=== PATIENT | female | born 1970 | race Caucasian/White ===

== ENCOUNTER 2019-04-23 22:06 | Inpatient (IN) | payer BC ==
[2019-04-23] MEDS ORDERED: ONDANSETRON 4 MG/2 ML VIAL IVP STA (22:54)
--- NOTE | 2019-04-24 00:16 | ED ---
SOB HPI - General Chief Complaint: Shortness of Breath Stated Complaint: Pneumonia Time Seen by Provider: 04/23/19 22:16 Source: patient, RN/MD, EMS, RN notes reviewed, old records reviewed Mode of arrival: EMS Limitations: no limitations - History of Present Illness Initial Comments: This is a 48-year-old female who was transferred from [facility] today where she presented with complaints of abdominal pain fever generalized weakness shortness of breath that apparently started about 3 weeks ago with abdominal pain and fatigue patient states she was not feeling well has had also had intermittent constipation since that time. A 1 week ago she started developing chest pain exertional dyspnea. She was found have on CAT scan multilobar pneum onia. She also had elevated sed rate. Patient also states she does have a history kidney stones a history of sepsis in the past believed to be secondary to the kidney stones. Patient was given Rocephin and Zithromax at [facility] and sent here for further evaluation. Patient also states that she did have shortness of breath that was improved after nebulizer treatment. She is a former smoker. MD Complaint: shortness of breath - Related Data Home Medications Medication Instructions Recorded Confirmed Pregabalin [Lyrica] 75 mg PO QID 01/01/16 04/23/19 metFORMIN HCL [metFORMIN HCL ER] 750 mg PO DAILY 01/01/16 04/23/19 DULoxetine HCL [Cymbalta] 30 mg PO HS 04/23/19 04/23/19 DULoxetine HCL [Cymbalta] 60 mg PO QAM 04/23/19 04/23/19 Allergies Allergy/AdvReac Type Severity Reaction Status Date / Time No Known Allergies Allergy Verified 04/23/19 22:29 Review of Systems ROS Statement: Those systems with pertinent positive or pertinent negative responses have been documented in the HPI. ROS Other: All systems not noted in ROS Statement are negative. Past Medical History Past Medical History: Fibromyalgia Additional Past Medical History / Comment(s): kidney stone History of Any Multi-Drug Resistant Organisms: None Reported Past Surgical History: Cholecystectomy Additional Past Surgical History / Comment(s): kidney stone Past Psychological History: Depression Smoking Status: Current every day smoker Past Alcohol Use History: None Reported Past Drug Use History: Marijuana General Exam - General Exam Comments Initial Comments: This is a well-developed well-nourished awake alert oriented 3 female Limitations: no limitations General appearance: alert, anxious Head exam: Present: atraumatic, normocephalic, normal inspection Eye exam: Present: normal appearance, PERRL, EOMI. Absent: scleral icterus, conjunctival injection, periorbital swelling ENT exam: Present: normal exam, mucous membranes moist Neck exam: Present: normal inspection. Absent: tenderness, meningismus, lymphadenopathy Respiratory exam: Present: decreased breath sounds. Absent: respiratory distress, wheezes, rales, rhonchi, stridor Cardiovascular Exam: Present: regular rate, normal rhythm, normal heart sounds. Absent: systolic murmur, diastolic murmur, rubs, gallop, clicks GI/Abdominal exam: Present: soft, normal bowel sounds. Absent: distended, tenderness, guarding, rebound, rigid Extremities exam: Present: normal inspection, full ROM, normal capillary refill. Absent: tenderness, pedal edema, joint swelling, calf tenderness Back exam: Present: normal inspection Neurological exam: Present: alert, oriented X3, CN II-XII intact Psychiatric exam: Present: normal affect, normal mood Skin exam: Present: warm, dry, intact, normal color. Absent: rash Course Vital Signs 04/23/19 22:09 Temperature 98.0 F Pulse Rate 77 Respiratory 18 Rate Blood Pressure 125/91 O2 Sat by Pulse 99 Oximetry Medical Decision Making - Medical Decision Making I did review the materials presented from [facility]. The patient will be admitted the case is discussed with Dr. Cortes Disposition Clinical Impression: Pneumonia, Bronchospasm, Exertional dyspnea Disposition: ADMITTED IP TO THIS HOSP Condition: Fair Referrals: Grecia García MD [Primary Care Provider] - 1-2 days
[2019-04-24] MEDS ORDERED: PNEUMONIA PROTOCOL UTILIZED 1 EACH MISC PO PRN (00:21)
[2019-04-24] MEDS: SODIUM CHLORIDE 0.9% 1,000 ML IV SCH ×2 (01:39→02:37)
[2019-04-24] MEDS ORDERED: predniSONE 20 MG TAB PO SCH ×2 (01:49→09:00)
[2019-04-24] MEDS ORDERED: KETOROLAC 30 MG/ML 1 ML VIAL IVP PRN (01:51)
[2019-04-24] MEDS ORDERED: predniSONE 20 MG TAB PO STA (01:53)
[2019-04-24] MEDS: PANTOPRAZOLE 40 MG TABLET PO SCH ×2 (02:36→09:35)
[2019-04-24] MEDS: ALPRAZolam 0.5 MG TAB PO PRN ×2 (02:36→10:01)
[2019-04-24 02:42] LABS: Glucose,Whole Blood 133 mg/dL (75-99)
[2019-04-24 02:52] VITALS: BMI 31.1
--- NOTE | 2019-04-24 03:03 | P.HPIM ---
History of Present Illness H&P Date: 04/24/19 Chief Complaint: Pleuritic chest pain upper abdominal pain 48-year-old female with history of fibromyalgia. Positive family history of autoimmune disease Patient presented to our hospital as a transfer from [facility]. She went to [facility] with a complaint of generalized fatigue and heavy breathing with pleuritic chest pain. She's been having three-week history of abdominal discomfort with nausea. She reports constipation with a bowel movement once every 3-5 days after taking laxatives. Denies any GI bleeding denies any urinary symptoms denies any vomiting. She reports vague symptoms of malaise and fatigue and low-grade fevers. She denies any coughing denies any runny nose or sore throat denies any chest pain however today she started having pleuritic chest pain with deep breaths for which she decided to go to the hospital At [facility] ER she was found to be hypoxic with oxygen sats down to the mid 80s. Her EKG was negative her troponins were negative however d-dimer was positive for which she had CT angiography the chest due to complaints of pleuritic chest pain to rule out PE. CT angios the chest showed no PE however did suggest bilateral lobar pneumonia showing groundglass opacities for which she was given Rocephin and azithromycin and then was transferred to our facility for further care. I reviewed paper records from [facility] including her PCP office records looks like patient had thrombocytosis with elevated platelets normal white count and normal hemoglobin and normal complete metabolic panel. However her platelets were elevated in the 600s range, ESR elevated to 100, antinuclear antibody was positive The differential showed positive anti-BRAKE REPAIRER RAILROAD, negative anti-Fink and negative double-stranded DNA. This is in my opinion suggestive of mixed connective tissue disease for which would explain the vague symptoms that she mentioned above including fatigue malaise fevers and pleuritic chest pain along with abdominal discomfort. I stopped the antibiotic and initiated the patient on prednisone we'll continue to monitor for clinical improvement Patient had a computed tomography scan done 2 weeks ago to the abdomen which only showed constipation this was done at [facility] Review of Systems Pertinent positives as noted in HPI. All other systems were reviewed and are negative Past Medical History Past Medical History: Fibromyalgia Additional Past Medical History / Comment(s): kidney stone History of Any Multi-Drug Resistant Organisms: None Reported Past Surgical History: Cholecystectomy Additional Past Surgical History / Comment(s): kidney stone Past Psychological History: Depression Smoking Status: Current every day smoker Past Alcohol Use History: None Reported Past Drug Use History: Marijuana - Past Family History Family Additional Family Medical History / Comment(s): Father with rheumatoid arthritis, sister with lupus Medications and Allergies Home Medications Medication Instructions Recorded Confirmed Type Pregabalin [Lyrica] 75 mg PO QID 01/01/16 04/23/19 History metFORMIN HCL [metFORMIN HCL ER] 750 mg PO DAILY 01/01/16 04/23/19 History DULoxetine HCL [Cymbalta] 30 mg PO HS 04/23/19 04/23/19 History DULoxetine HCL [Cymbalta] 60 mg PO QAM 04/23/19 04/23/19 History Allergies Allergy/AdvReac Type Severity Reaction Status Date / Time No Known Allergies Allergy Verified 04/23/19 22:29 Physical Exam Vitals: Vital Signs Temp Pulse Resp BP Pulse Ox 04/23/19 22:09 98.0 F 77 18 125/91 99 Intake and Output 04/23/19 04/23/19 04/24/19 14:59 22:59 06:59 Other: Weight 86.636 kg Constitutional: No acute distress, conversant, pleasant Eyes: Anicteric sclerae, moist conjunctiva, no lid-lag Pupils equal round reactive to light ENMT: NC/AT Oropharynx clear, no erythema, or exudates Neck: Supple, FROM, no masses, or JVD No carotid bruits No thyromegaly Lungs: Clear to auscultation Clear to percussion Normal respiratory effort, no accessory muscle use Cardiovascular: Heart regular in rate and rhythm, No murmurs, gallops, or rubs No peripheral edema Abdominal: Soft, tenderness to palpation over the left upper quadrant and right upper quadrant no rebound tenderness no guarding, rebound or rigidity Abdomen moving with respiration Normoactive bowel sounds No hepatomegaly, No splenomegaly No palpable mass No abdominal wall hernia noted Skin: Normal temperature, tone, texture, turgor No induration No subcutaneous nodules No rash, lesions No ulcers Extremities: No digital cyanosis No clubbing Pedal pulses intact and symmetrical Radial pulses intact and symmetrical No calf tenderness Psychiatric: Alert and oriented to person, place and time Appropriate affect fair judgment Neuro Muscles Strength 5/5 in all 4 extremities Sensation to light touch grossly present throughout Cranial nerves II-XII grossly intact No focal sensory deficits Lymphatics: no palpable cervical or supraclavicular , or inguinal lymph nodes Assessment and Plan Assessment: 48-year-old female with history of fibromyalgia and family history of autoimmune disease admitted as an inpatient with anticipated length of stay more than 2 midnights for acute hypoxic respiratory failure with underlying abdominal pain and pleuritic chest pain due to possible flareup of mixed connective tissue disease which is a new diagnosis for her. Patient was also admitted to rule out infectious process patient was transferred from [facility] to our facility for further care Patient received antibiotics in the ED Rocephin and azithromycin for presumed multilobar pneumonia. I reviewed patient labs from her PCP office it was positive for antinuclear antibody, positive for BRAKE [employer]PA[employer]ER [employer]ILROAD antibodies and negative for anti-Fink and [id number] DNA this is diagnostic of mixed connective tissue disease Patient complaining of pleuritic chest pain which I think part of the spectrum of mixed connective tissue disease flareup along with abdominal discomfort I reviewed paper records from [facility] including her PCP office records looks like patient had thrombocytosis with elevated platelets normal white count and normal hemoglobin and normal complete metabolic panel. However her platelets were elevated in the 600s range, ESR elevated to 100, antinuclear antibody was positive The differential showed positive anti-BRAKE REPAIRER RAILROAD, positive globulins, negative anti- Fink and negative double-stranded DNA. Negative sjogren antibodies This is in my opinion suggestive of mixed connective tissue disease for which would explain the vague symptoms that she mentioned above including fatigue malaise fevers and pleuritic chest pain along with abdominal discomfort. I stopped the antibiotic and initiated the patient on prednisone we'll continue to monitor for clinical improvement Urine analysis was unremarkable, amylase and lipase both negative CT of the abdomen done 1-2 weeks ago showed only constipation CT angiogram of the chest done at [facility] showed bilateral groundglass opacities, was concerning for bilateral lobar pneumonia Plan: Acute hypoxic respiratory failure (as per documentation from [facility] with a documented hypoxemia on room air down to 87%) Pleuritic chest pain, I think this is secondary to acute flareup of mixed connective tissue disease Knee diagnosis of mixed connective tissue disease Thrombocytosis most likely reactive Plan Patient received antibiotics in the ED Rocephin and azithromycin for presumed multilobar pneumonia. Discontinue antibiotic continue to monitor off antibiotics for any evidence of fever and leukocytosis or positive blood cultures. I reviewed patient labs from her PCP office it was positive for antinuclear antibody, positive for BRAKE REPA[employer]ER RAILROAD antibodies and negative for anti-Fink and yzrg-guvgmi-hhihwtin DNA this is diagnostic of mixed connective tissue disease Patient complaining of pleuritic chest pain which I think part of the spectrum of mixed connective tissue disease flareup along with abdominal discomfort Patient started on prednisone 60 mg daily we'll monitor for improvement in symptoms Patient will require referral to rheumatology upon discharge Check echocardiogram on the patient PPI for GI prophylaxis Heparin for DVT prophylaxis Supportive care IV fluid hydration Xanax for anxiety Pain control with Toradol Surrogate decision-maker: Patient and sister CODE STATUS: Full code Discussed with: Patient, ER, RN Anticipated length of stay more than [address]: Pending clinical course A total of 60 minutes was spent on the care of this complex patient more than 50% of the time was spent in counseling and care coordination.
--- NOTE | 2019-04-24 03:07 | P.HPADDEND ---
H&P Addendum H&P Addendum Date: 04/24/19 Advanced Care Planning Active diagnoses: Acute flareup of mixed connective tissue disease Pleurisy Acute hypoxic respiratory failure secondary to above Background: The patient was admitted for treatment of acute mixed connective tissue disease flareup. Confirmation and clarification of wishes upon admission. Discussion: Person(s) present and participating in discussion: The patient, myself, and RN Summary: I explained my opinion regarding new diagnosis of mixed connective tissue disease based on the blood work that she had at her PCP office from reviewing the anti-nuclear antibody assay. I explained to the patient disease progression which could manifest in different ways from meningitis to sudden bleeds to intracranial hemorrhage to pleurisy and pulmonary hypertension kidneys and skin issues. Suspect from that can involve symptoms related to lupus or rheumatoid arthritis among others. I explained to patient importance of establishing outpatient relationship and follow-up closely with rheumatology for further recommendations on management. I offered her in the acute setting glucocorticoid in the form of prednisone to help elevate the eighth her symptoms. Patient verbalized understanding she was tearful and worried as she was hoping for cure and feeling better at the same time she was happy that finally there is an explanation of her symptoms that she's been struggling with for years. Patient is hoping that she will be discharged home eventually as she has her sick that needs a lot of care. Patient is interested in home health care if she qualifies to. Patient elected to be a full code at this time and to pursue full medical measures as needed and deemed appropriate Time spent: Total time spent face to face in education and discussion directly related to advanced care plannin minutes
[2019-04-24] MEDS: IPRATROPIUM-ALBUTEROL 3 ML NEB INHALATION SCH ×2 (03:10→09:35)
[2019-04-24 06:11] VITALS: BP 135/84; RESP 16; TEMP 97.7
[2019-04-24 07:07] LABS: Glucose,Whole Blood 175 mg/dL (75-99)
[2019-04-24] MEDS ORDERED: INSULIN ASPART (NovoLOG) 100 UNIT/ML VIAL SQ SCH (07:30)
[2019-04-24] MEDS ORDERED: HEPARIN SODIUM,PORCINE 5,000 UNIT/ML 1 ML VIAL SQ SCH (08:00)
[2019-04-24] MEDS ORDERED: metFORMIN 500 MG TAB PO SCH (09:00)
[2019-04-24] MEDS ORDERED: PREGABALIN 75 MG CAP PO SCH (09:00)
[2019-04-24] MEDS ORDERED: DULoxetine HCL 60 MG CAPSULE.DR PO SCH (09:00)
--- NOTE | 2019-04-24 09:32 | ECHOF ---
Referral Reason:fatigue MEASUREMENTS -------- HEIGHT: 167.6 cm WEIGHT: 86.6 kg BP: 135/84 RVIDd: 3.1 cm (< 3.3) IVSd: 1.1 cm (0.6 - 1.1) LVIDd: 4.3 cm (3.9 - 5.3) LVPWd: 1.0 cm (0.6 - 1.1) IVSs: 1.7 cm LVIDs: 2.7 cm LVPWs: 1.6 cm LA Diam: 3.9 cm (2.7 - 3.8) LAESV Index (A-L): 27.67 ml/m Ao Diam: 2.9 cm (2.0 - 3.7) AV Cusp: 2.3 cm (1.5 - 2.6) MV EXCURSION: 12.148 mm (> 18.000) MV EF SLOPE: 94 mm/s (70 - 150) EPSS: 0.5 cm MV E Chemo: 0.96 m/s MV DecT: 220 ms MV A Chemo: 0.92 m/s MV E/A Ratio: 1.04 FINDINGS -------- Sinus rhythm. This was a technically good study. The left ventricular size is normal. There is borderline concentric left ventricular hypertrophy. Overall left ventricular systolic function is normal with, an EF between 60 - 65 %. The right ventricle is normal in size. Normal LA size by volume 22+/-6 ml/m2. The right atrium is normal in size. Interatrial and interventricular septum intact. The aortic valve is trileaflet and appears structurally normal. There is trace mitral regurgitation. The tricuspid valve appears structurally normal. There is no pulmonic regurgitation present. The aortic root size is normal. Normal inferior vena cava with normal inspiratory collapse consistent with estimated right atrial pre ssure of 5 mmHg. There is no pericardial effusion. CONCLUSIONS -------- 1. Sinus rhythm. 2. This was a technically good study. 3. The left ventricular size is normal. 4. There is borderline concentric left ventricular hypertrophy. 5. Overall left ventricular systolic function is normal with, an EF between 60 - 65 %. 6. The right ventricle is normal in size. 7. Normal LA size by volume 22+/-6 ml/m2. 8. The right atrium is normal in size. 9. Interatrial and interventricular septum intact. 10. The aortic valve is trileaflet and appears structurally normal. 11. There is trace mitral regurgitation. 12. The tricuspid valve appears structurally normal. 13. There is no pulmonic regurgitation present. 14. The aortic root size is normal. 15. Normal inferior vena cava with normal inspiratory collapse consistent with estimated right atrial pressure of 5 mmHg. 16. There is no pericardial effusion. [employer]ER MUS[employer]: Chari Hernández RDCS
[2019-04-24 09:39] VITALS: PULSE 68
--- NOTE | 2019-04-24 11:13 | P.DS ---
Providers Date of admission: 04/24/19 00:21 Expected date of discharge: 04/24/19 Attending physician: Mahesh Salas MD Primary care physician: Grecia García MD Hospital Course: Acute hypoxic respiratory failure (as per documentation from [facility] with a documented hypoxemia on room air down to 87%) Pleuritic chest pain, I think this is secondary to acute flareup of mixed connective tissue disease New diagnosis of mixed connective tissue disease Thrombocytosis most likely reactive Plan I reviewed patient labs from her PCP office it was positive for antinuclear antibody, positive for [employer] D[employer]LLING MACHINE OPERATOR antibodies and negative for anti-Fink and [id number] DNA this is diagnostic of mixed connective tissue disease Patient complaining of pleuritic chest pain which I think part of the spectrum of mixed connective tissue disease flareup along with abdominal discomfort Patient started on prednisone 60 mg daily we'll monitor for improvement in symptoms Patient was referred contact information to follow-up with rheumatology Dr. Melina Vallejo Patient received antibiotics in the ED Rocephin and azithromycin for presumed multilobar pneumonia. The patient is continued on azithromycin and instructed to follow-up with her PCP. This discharge process took approximately 30 minutes Focused exam Respiratory: Clear to auscultation bilaterally diminished in the bases, no wheezes or rhonchi unlabored on room air with excellent oxygen saturations Patient Condition at Discharge: Good Plan - Discharge Summary Discharge Rx Participant: No New Discharge Prescriptions: New Azithromycin 250 mg PO DAILY 4 Days #4 tab predniSONE 60 mg PO DAILY #14 tab Pantoprazole [Protonix] 40 mg PO DAILY #30 tablet. Continue metFORMIN HCL [metFORMIN HCL ER] 750 mg PO DAILY Pregabalin [Lyrica] 75 mg PO QID DULoxetine HCL [Cymbalta] 30 mg PO HS DULoxetine HCL [Cymbalta] 60 mg PO QAM Discharge Medication List Pregabalin [Lyrica] 75 mg PO QID 01/01/16 [History] metFORMIN HCL [metFORMIN HCL ER] 750 mg PO DAILY 01/01/16 [History] DULoxetine HCL [Cymbalta] 30 mg PO HS 04/23/19 [History] DULoxetine HCL [Cymbalta] 60 mg PO QAM 04/23/19 [History] Azithromycin 250 mg PO DAILY 4 Days #4 tab 04/24/19 [Rx] Pantoprazole [Protonix] 40 mg PO DAILY #30 tablet. 04/24/19 [Rx] predniSONE 60 mg PO DAILY #14 tab 04/24/19 [Rx] Follow up Appointment(s)/Referral(s): Melina Vallejo MD [REFERRING] - As Needed ([facility]. Please call office Saturday, 04/28, to schedule appt.) Grecia García MD [Primary Care Provider] - 1-2 days Patient Instructions/Handouts: Prednisone (By mouth), Azithromycin (By mouth), Pantoprazole (By mouth), Dyspnea (DC), Bronchospasm (DC), Pneumonia (DC) Discharge Disposition: HOME SELF-CARE
[2019-04-24] MEDS ORDERED: DULoxetine HCL 30 MG CAPSULE.DR PO SCH (21:00)
[2019-04-25] MEDS ORDERED: AZITHROMYCIN 500 MG TAB PO SCH (00:23)
== END 2019-04-24 11:45 | disposition home or self-care (01) | DRG 545 ==
LOC: EC 22:06 → 3NMEDONC 04-24 00:21
PROVIDERS: ADMIT Internal Medicine; ATTEND Internal Medicine
DX: M35.1 Other overlap syndromes (principal); J96.01 Acute respiratory failure with hypoxia; M79.7 Fibromyalgia; F17.200 Nicotine dependence, unspecified, uncomplicated; F41.9 Anxiety disorder, unspecified; D47.3 Essential (hemorrhagic) thrombocythemia; K59.00 Constipation, unspecified; F32.9 Major depressive disorder, single episode, unspecified; F17.210 Nicotine dependence, cigarettes, uncomplicated; Z90.49 Acquired absence of other specified parts of digestive tract; Z79.84 Long term (current) use of oral hypoglycemic drugs; Z79.899 Other long term (current) drug therapy; Z87.442 Personal history of urinary calculi; Z83.49 Family history of other endocrine, nutritional and metabolic diseases; Z82.61 Family history of arthritis; Z83.1 Family history of other infectious and parasitic diseases
CPT/HCPCS: 87040; 93306; 94640; 96374; 99285

== ENCOUNTER → 2021-06-22 | Outpatient (CLI) | payer BC ==
[2021-06-22 23:06] LABS: Basophils # (A) 0.05 X 10*3/uL (0.00-0.10); Basophils % (A) 0.8 %; Eosinophils # (A) 0.09 X 10*3/uL (0.04-0.35); Eosinophils % (A) 1.4 %; HCT 44.5 % (37.2-46.3); HGB 14.1 g/dL (12.0-15.0); Lymphocytes # (A) 1.72 X 10*3/uL (0.90-5.00); Lymphocytes % (A) 27.3 %; MCH 29.8 pg (27.0-32.0); MCHC 31.7 g/dL (32.0-37.0); MCV 94.1 fL (80.0-97.0); Mean Platelet Volume 11.6 fL (9.5-12.2); Monocytes % (A) 6.3 %; Neutrophils # (A) 4.04 X 10*3/uL (1.80-7.70); Platelet Count 269 X 10*3/uL (140-440); RBC 4.73 X 10*6/uL (4.10-5.20); WBC 6.31 X 10*3/uL (4.50-10.00)
[2021-06-23 01:31] LABS: African American GFR (CKD) 109.4 (60.0-200.0); Albumin 4.3 g/dL (3.8-4.9); Albumin/Globulin Ratio 1.92 (1.60-3.17); Anion Gap 13.8 mmol/L (4.00-12.00); BUN/Creat Ratio 15.17 Ratio (12.00-20.00); Blood Urea Nitrogen 11.3 mg/dL (9.0-27.0); Calcium 9.1 mg/dL (8.7-10.3); Carbon Dioxide 27.8 mmol/L (21.6-31.8); Globulin 2.2 g/dL (1.6-3.3); Non-African American GFR(CKD) 94.4 (60.0-200.0); Potassium 4.1 mmol/L (3.5-5.5); T4, Free (Free Thyroxine) 0.91 ng/dL (0.800-1.800); Total Bilirubin 0.2 mg/dL (0.30-1.20); Total Protein 6.5 g/dL (6.2-8.2)
== END | disposition home or self-care (01) ==
LOC: LABWHC1 14:37
PROVIDERS: ATTEND Nurse Practitioner Acute Care
DX: E55.9 Vitamin D deficiency, unspecified (principal); E53.9 Vitamin B deficiency, unspecified; R41.3 Other amnesia; G43.019 Migraine without aura, intractable, without status migrainosus
CPT/HCPCS: 36415; 80053; 82306; 82607; 84207; 84439; 84443; 85025; 93005